=== PATIENT | female | born 1945 | race Caucasian/White ===

== ENCOUNTER → 2019-03-13 | Outpatient (CLI) | payer MEDICARE, OTHER, SELFPAY ==
[2017-10-26 14:01] VITALS: BMI 24.7
--- NOTE | 2019-03-13 10:28 | BI_ITS ---
MAMMOGRAPHY - BILATERAL SCREENING REASON FOR EXAM: Female, 74 years old. Routine annual screening examination. PERTINENT HISTORY: Mother with breast cancer. Aunt with breast cancer. TECHNIQUE: Digital bilateral breast demetri (3D mammographic acquisition) in the CC and MLO projections. 2-D mediolateral oblique (MLO) and craniocaudad (CC) views of both breasts were obtained. CAD: Full Field Digital Mammography with Computer Added Detection was performed. COMPARISON: Comparison is made with prior study dated February 13, 2017 and December 10, 2015. FINDINGS: Breast Composition: There are scattered areas of fibroglandular density. There are no dominant masses or suspicious calcifications. No other significant abnormalities are identified. There has been no significant change since the prior study. BI/SCREEN MAMM (CAD) W/DEMETRI BILAT IMPRESSION: Stable bilateral screening mammogram. Yearly follow-up mammogram recommended. (A) ASSESSMENT CATEGORY: BIRADS Category 1: Negative. A letter regarding these results will be sent to the patient by the facility within 30 days. Approximately 10% of breast cancers are not detected by mammography. A normal mammogram should not delay biopsy of a clinically suspicious abnormality. [id number] Electronically Signed: Emiliano Galvez, at 12:40 EDT , Service support ,
--- NOTE | 2019-03-13 10:43 | BD_ITS ---
STUDY: DUAL ENERGY X-RAY ABSORPTIOMETRY / DXA REASON FOR EXAM: Female, 74 years old. The patient is postmenopausal. Loss of height. TECHNIQUE: Bone Mineral Density (BMD) measurements of lumbar spine and bilateral hips were obtained. COMPARISON: Comparison is made with prior examination dated January 13, 2015. FINDINGS: Lumbar Spine (L1-L4): g/cm2 (1.212) / T-score (0.4) / Z-score (2.1) Findings are suggestive of normal bone density with a low fracture risk. Left Femur Total: g/cm2 (0.862) / T-score (-1.2) / Z-score (0.5) Left Femoral Neck: g/cm2 (0.813) / T-score (-1.6) / Z-score (0.2) Right Femur Total: g/cm2 (0.871) / T-score (-1.1) / Z-score (0.5) Right Femoral Neck: g/cm2 (0.763) / T-score (-2.0) / Z-score (-0.2) The T-Scores on the most recent prior examination were: Lumbar Spine (L1-L4): There has been improvement of bone density since the previous examination. Left Femur Total: which represents an improvement of 0.1%. Right Femur Total: which represents an improvement of 3.3%. BD/Dexa Bone Density Study IMPRESSION: The patient is considered osteopenic as outlined below according to World Vivek Organization (WHO) criteria with a moderate fracture risk. There has been improvement of bone density since the previous examination. Reference Information: The T-score is the number of standard deviations above or below the standard which is normal for young adults at their peak bone mineral density. The World Health Organization (WHO) interprets the T-scores as follows: Above -1 Normal bone density Between -1 and -2.5 Osteopenia Equal to / or below -2.5 Osteoporosis As a practical clinical guideline, osteopenia may be graded as follows: Mild -1 through -1.5 Moderate -1.6 through -2.0 Severe -2.1 through -2.4 The Z-score is the number of standard deviations above or below age-matched controls. A Z-score of less than -1.5 would be considered abnormal. References: 1. NIH Osteoporosis and Related Bone Diseases http://www.osteo.org 2. International Society for Clinical Densitometry http://www.iscd.org 3. National Osteoporosis Foundation http://www.nof.org Electronically Signed: Emiliano Galvez, at 8:57 EDT , Service support ,
== END | disposition home or self-care (01) ==
PROVIDERS: Family Provider Internal Medicine; PCP Internal Medicine; Referring Provider Internal Medicine; Visit Provider Internal Medicine
DX: Z12.31 Encounter for screening mammogram for malignant neoplasm of breast (principal); Z78.0 Asymptomatic menopausal state
CPT/HCPCS: 77063; 77067; 77080

== ENCOUNTER → 2019-08-22 12:39 | Outpatient (CLI) | payer MEDICARE, OTHER, SELFPAY ==
--- NOTE | 2019-08-22 12:44 | RAD_ITS ---
STUDY: X-RAY CHEST REASON FOR EXAM: Female, 74 years old. Cough. TECHNIQUE: 2 views COMPARISON: Prior chest radiograph of October 31, 2016 and March 28, 2016 FINDINGS: Stable bibasilar interstitial opacities. Slightly indistinct lateral right diaphragm. Otherwise negative for major consolidation or pleural effusion. Normal size heart. Normal mediastinum and soledad. Normal visualized pulmonary arteries. There is atherosclerotic calcification of the aortic arch with tortuosity. There are diffuse degenerative changes of the visualized thoracic spine. Normal visualized ribs, clavicles, and shoulders. There is no demonstrated abnormality of the visualized soft tissue structures of the upper abdomen. RAD/Chest PA and Lateral IMPRESSION: Bilateral chronic interstitial changes similar to prior exam with a mild infiltrate or atelectasis at the right lung base compared to prior exam. Electronically Signed: Mary Coburn MD at 19:05 EST , Service support ,
== END ==
PROVIDERS: Family Provider Internal Medicine; PCP Internal Medicine; Referring Provider Internal Medicine; Visit Provider Internal Medicine
DX: R05 Cough (principal)
CPT/HCPCS: 71046

== ENCOUNTER → 2019-09-04 13:49 | Outpatient (CLI) | payer MEDICARE, OTHER, SELFPAY ==
[2017-10-26 14:01] VITALS: BMI 24.7
--- NOTE | 2019-09-04 14:00 | ECHOD_ITS ---
Reason For Study: PHTN Procedure This was a 2D Doppler, Color Flow transthoracic echocardiogram. Exam performed in department. Left Ventricle Normal size and thickness. The estimated ejection fraction is 65 %. Stage 1 diastolic dysfunction. No regional wall motion abnormalities noted. Right Ventricle Normal size and thickness. Normal systolic function. Atria Normal left atrium. Normal right atrium. Normal atrial septum. Mitral Valve The mitral valve is structurally normal. No prolapse or stenosis seen. Trivial mitral valve insufficiency. Tricuspid Valve Normal tricuspid valve. Trivial tricuspid valve insufficiency. Right ventricular systolic pressure estimated to be 35 mmHg. Aortic Valve Trisinus/trileaflet aortic valve. Aortic sclerosis, no stenosis. Trivial aortic valve insufficiency. Pulmonic Valve Normal pulmonic valve. Great Vessels Normal aortic root. Normal arch. Normal inferior vena cava. Inferior vena cava collapse with sniff. Pericardium/Pleural No pericardial effusion. MMode/2D Measurements & Calculations LVIDd: 4.3 cm IVSd: 0.96 cm Ao root diam: 2.1 cm LVIDs: 2.5 cm LVPWd: 0.95 cm RVDd: 2.5 cm FS: 42.9 % LAV(MOD-bp): 35.8 ml LVAd ap4: 20.2 cm2 SV(MOD-sp4): 33.7 ml LAV(MOD-bp) Indexed: 23.2 ml/m2 EDV(MOD-sp4): 53.1 ml LAV(MOD-sp2): 45.6 ml EDV(sp4-el): 55.3 ml LAV(MOD-sp4): 27.9 ml LVAs ap4: 10.9 cm2 ESV(MOD-sp4): 19.4 ml ESV(sp4-el): 19.5 ml EF(MOD-sp4): 63.5 % EF(sp4-el): 64.7 % SV(sp4-el): 35.8 ml LA A4 area: 12.5 cm2 LA dimension(2D): 3.9 cm RA A4 area: 12.0 cm2 Doppler Measurements & Calculations MV E max mekhi: 95.4 cm/sec Lat Peak E' Mekhi: 5.7 cm/sec Med Peak E' Mekhi: 5.6 cm/sec MV A max mekhi: 103.5 cm/sec E/E' lat: 16.8 E/E' med: 17.0 MV E/A: 0.92 Ao V2 max: 163.1 cm/sec LV V1 max: 110.6 cm/sec PA V2 max: 95.1 cm/sec Ao max P.6 mmHg LV V1 max P.9 mmHg Ao V2 mean: 114.2 cm/sec Ao mean P.7 mmHg Ao V2 VTI: 36.9 cm TR max mekhi: 272.1 cm/sec TR max P.6 mmHg Interpretation Summary The estimated ejection fraction is 65 %. Stage 1 diastolic dysfunction. Trivial mitral valve insufficiency. Trivial tricuspid valve insufficiency. Right ventricular systolic pressure estimated to be 35 mmHg. Trivial aortic valve insufficiency. Compared to echo report dated 06/14/2008, no appreciable changes noted. Ordering Physician: Fela Rodriguez Referring Physician: Fela Rodriguez Performed By: Michelle Suarez, VINH, RVT
== END ==
PROVIDERS: Family Provider Internal Medicine; PCP Internal Medicine; Referring Provider Internal Medicine; Visit Provider Internal Medicine
DX: I27.0 Primary pulmonary hypertension (principal)
CPT/HCPCS: 93306

== ENCOUNTER → 2019-11-13 14:39 | Outpatient (CLI) | payer MEDICARE, OTHER, SELFPAY ==
[2017-10-26 14:01] VITALS: BMI 24.7
--- NOTE | 2019-11-13 14:43 | RAD_ITS ---
STUDY: X-RAY - ABDOMEN/PELVIS REASON FOR EXAM: Female, 74 years old. CONSTIPATION TECHNIQUE: Single AP view of the abdomen / pelvis. COMPARISON: None. FINDINGS: Normal visualized lung bases. No dilated loops of small bowel. There is fecal residue of the right and left colon. There is no demonstrated free abdominal air. The visualized liver, spleen and kidneys are grossly normal in size and morphology. Normal soft tissue structures. There are diffuse degenerative changes of the visualized lumbar spine. Mild levoscoliosis. RAD/Abdomen Single View IMPRESSION: Mild colonic fecal residue without dilated loops of bowel. Electronically Signed: David Nolen MD (Brooks) at 12:08 EST , Service support ,
== END ==
PROVIDERS: PCP Internal Medicine; Referring Provider Internal Medicine; Visit Provider Internal Medicine
DX: K59.00 Constipation, unspecified (principal)
CPT/HCPCS: 74018

== ENCOUNTER → 2019-12-19 12:03 | Outpatient (CLI) | payer MEDICARE, OTHER, SELFPAY ==
[2017-10-26 14:01] VITALS: BMI 24.7
--- NOTE | 2019-12-19 11:38 | SPU_PTH ---
PATIENT: ZO HORN LOC: [facility] U#:[id number] AGE/SX: 80/F ROOM: RE12/19/[address]: Dr. Aleks Krause MD : 1945 BED: DIS: SPEC #: [id number] RECD: 12/19/19 13:21 STATUS: DORIS RESilverio #: [id number] RAINA: 12/19/19 11:[address]: Aleks Krause V DEPT: CYTOLOGY RECD BY: Sony Farmer ENTERED: 12/19/19 13:21 SP TYPE: Sputum Cy OTHR DR: Dr. Fela Rodriguez, Tissues: Sputum Procedures: Pap Stain (control) Special Stain Group II Special Stain Group I AFB Stain (control) GMS Stain (control) Cytospin Fluid HEADER OPERATION: Not noted PRE-OP DIAGNOSIS: Cough TISSUE SUBMITTED: Sputum for cytology DIAGNOSIS CYTOLOGY Sputum for cytology (cytospin and smears): Negative for malignant cells. Special stains for acid fast bacilli and fungi are negative for organisms; matched controls are appropriate. See comment. SJ:lucio 12/20/19 COMMENT Eosinophils are not seen. Organisms consistent with bacteria are noted. Correlation with clinical findings and appropriate follow up are necessary. CYTOLOGY STUDY Slides are reviewed. CYTOLOGY GROSS Received is 0.5 ml of cloudy white mucoid material labeled with the patient's name and and designated per the requisition as sputum. Submitted for cytology preparation. / lucio 12/19/19 TC:5 CPT: 01333, 96257 x2
[2019-12-19 12:22] LABS: Cytology, Body Fluid / CSF SEE PATHOLOGY REPORT
== END ==
PROVIDERS: PCP Internal Medicine; Referring Provider Internal Medicine Pulmonary Disease; Visit Provider Internal Medicine Pulmonary Disease
DX: R05 Cough (principal)
CPT/HCPCS: 87015; 87070; 87101; 87116; 87205; 87206; 88108; 88312; 88313

== ENCOUNTER → 2019-12-20 16:57 | Outpatient (CLI) | payer MEDICARE, OTHER, SELFPAY ==
[2017-10-26 14:01] VITALS: BMI 24.7
== END ==
PROVIDERS: PCP Internal Medicine; Referring Provider Internal Medicine Pulmonary Disease; Visit Provider Internal Medicine Pulmonary Disease
DX: R05 Cough (principal)
CPT/HCPCS: 87015; 87116; 87206

== ENCOUNTER → 2019-12-23 12:56 | Outpatient (CLI) | payer MEDICARE, OTHER, SELFPAY ==
[2017-10-26 14:01] VITALS: BMI 24.7
--- NOTE | 2019-12-23 13:30 | SP.MBSS_ITS ---
PRIMARY / SECONDARY DIAGNOSIS: dysphagia (R13.10) REFERRING PHYSICIAN: Dr. Aleks Krause MD CURRENT DIET: regular textures, thin liquids DENTITION: dentures MENTAL STATUS: WNL RESPIRATORY STATUS: O2 via room air REASON FOR REFERRAL: The Patient is a 74 year old female referred for a modified barium swallow (MBS) study to objectively assess the Patients oropharyngeal swallow function under fluoroscopy secondary to reported intermittent post prandial globus sensation occurring for approximately 1 month, with the Patient reporting difficulties with motility primary for solid textures and medications MEDICAL HISTORY: Chronic obstructive pulmonary disease, dyspnea on exertion, asthma, aortic stenosis, bilateral carotid occlusion, chest pain, syncope, pulmonary hypertension, hyperlipidemia, spinal stenosis, osteoporosis, gastroesophageal reflux disease, status post tonsillectomy. PREVIOUS MODIFIED BARIUM SWALLOW STUDY: None ASSESSMENT PARAMETERS: The Patient participated in a Modified Barium Swallow (MBS) study on 12/23/2019. This study was recorded in the lateral view and images were sent to PACs for storage. Scoring was completed through each trial using the 8- point Penetration-Aspiration Scale (PAS) and summarized via the Videofluoroscopic Dysphagia Scale (VDS) and the Bolus Residue Scale (BRS), with severity scoring through the Dysphagia Severity Rating Scale (DSRS) and the Swallowing Performance Scale (SPS), and recommended diet textures through the International Dysphagia Diet Standardisation Initiative (IDDSI) RESULTS OF THE EVALUATION: The Patient presents with mastication and deglutition abilities found to be grossly within functional limits (DSRS: 1; SPS: 2) with shallow transient penetration during sequential ingestion not significantly outside expected values for age matched peers. OBJECTIVE ASSESSMENT OF SWALLOW FUNCTION (QUANTITATIVE ? PER TRIAL): PENETRATION / ASPIRATION SCALE (SANTOS): 1 = does not enter airway 2 = enters airway/above vocal folds/ejected 3 = enters airway/above vocal folds/not ejected 4 = enters airway/contacts vocal folds/ejected 5 = enters airway/contacts vocal folds/not ejected 6 = enters airway/below vocal folds/ejected 7 = enters airway/below vocal folds/not ejected despite effort 8 = enters airway/below vocal folds/no effort PENETRATION / ASPIRATION SCALE (SCORE): Thin liquid - 5 mL tsp.: 1 Thin liquids via cup (single sip): 1 Thin liquids via cup (single sip): 1 Thin liquids via cup (single sip): 1 Thin liquids via cup (sequential swallows): 2 Thin liquids via straw (single sip): 1 Thin liquids via straw (sequential swallows): 3 Pudding via spoon: 1 Regular textured cookie: 1 Thin liquids via straw (chin tuck): 1 Thin liquids via straw (chin tuck): 1 Thin liquids via straw (chin tuck): 1 OBJECTIVE ASSESSMENT OF SWALLOW FUNCTION (QUANTITATIVE ? AGGREGATE): VIDEOFLOROSCOPIC DYSPHAGIA SCALE (VDS): LIP CLOSURE: 0 (of 4) Intact BOLUS FORMATION: 0 (of 6) Intact MASTICATION: 0 (of 8) Intact APRAXIA: 0 (of 4.5) None TONGUE TO PALATE CONTACT: 0 (of 10) Intact PREMATURE BOLUS LOSS: 0 (of 4.5) None ORAL TRANSIT TIME: 0 (of 3) < 1.5s TRIGGERING OF PHARYNGEAL SWALLOW: 0 (of 4.5) Normal VALLECULAR RESIDUE: 2 (of 6) <10% LARYNGEAL ELEVATION: 0 (of 9) Normal PYRIFORM SINUS RESIDUE: 4.5 (of 13.5) <10% COATING OF PHARYNGEAL WALL: 0 (of 9) No PHARYNGEAL TRANSIT TIME: 0 (of 6) <1.0s ASPIRATION: 6 (of 12) Supraglottic penetration BOLUS RESIDUE SCALE (BRS): 3 (of 6) residue in the piriform sinus OBJECTIVE ASSESSMENT OF SWALLOW FUNCTION (SEVERITY GRADING): DYSPHAGIA SEVERITY RATING SCALE (DSRS): 1 (within functional limits) SWALLOWING PERFORMANCE SCALE (SPS): 2 (within functional limits) OBJECTIVE ASSESSMENT OF SWALLOW FUNCTION (QUALITATIVE): ORAL PREPARATORY PHASE: sufficient mastication rate and quality; competent bolus manipulation without fragmented swallowing (piecemeal deglutition); sufficient anterior oral containment during oral manipulation; preserved management of breathing / bolus formation ORAL TRANSITIONAL PHASE: sufficient bolus transportation; no lingual discoordination (no tremor / undulations); no bolus consolidation impairments with sufficient oral clearance; no presence of premature posterior bolus loss; PHARYNGEAL PHASE: no signs of pharyngeal dyssynchrony; appropriate hyolaryngeal excursion and laryngeal vestibule closure / pressure; with overall sufficient though inconsistent laryngeal vestibule pressure generated to expel penetrated material (incomplete ejection on one occasion); slight post prandial retention within the pyriforms on one occasion attributed to a slight reduction in pharyngoesophageal segment relaxation, though overall sufficient pharyngeal motility noted; no signs of velopharyngeal impairments. ESOPHAGEAL PHASE: no obvious esophageal phase abnormalities observed, though given the Patients reported concerns further testing with measures sensitive to esophageal phase functioning may be indicated if not already completed. RESPONSE TO STRATEGIES: all deficits managed successfully with reduction in bolus rate / volume adjustments, similar effects noted with execution of the chin tuck posture. INTERVENTION RECOMMENDATIONS AND CONSIDERATIONS: No further skilled speech-language services warranted at this time targeting dysphagia. POST ASSESSMENT EDUCATION: Results and recommendations were discussed with the Patient immediately following MBS completion, with the Patient and Patients family verbalizing understanding and agreement with all recommendations and education provided. I provided brief overview of signs and symptoms of aspiration, with recommendations for the Patient to further discuss symptoms with the Patients primary care provider. DIET TEXTURE RECOMMENDATIONS: Will recommend a regular textured (IDDSI: 7), thin liquid diet (IDDSI: 0) diet RECOMMENDED COMPENSATORY STRATEGIES: Consider cutting tougher textures into bite sized pieces, reduced bolus volume / rate of ingestion, seated upright at 90 degrees during PO intake, remain upright for 30-60 minutes post meal (GERD precaution) IMAGE COUNT: [id number] Sony Barlow M.A., HOLGER-BENEFITS MANAGER, CBIS MBSImP Certified, LSVT Certified [facility]Language [facility] Department [email or web address]
--- NOTE | 2019-12-23 16:11 | SPU_PTH ---
PATIENT: ZO HORN LOC: [facility] U#:[id number] AGE/SX: 80/F ROOM: RE12/23/[address]: Dr. Aleks Krause MD : 1945 BED: DIS: SPEC #: [id number] RECD: 12/24/19 08:45 STATUS: DORIS RESilverio #: [id number] RAINA: 12/23/19 16:[address]: Aleks Krause V DEPT: CYTOLOGY RECD BY: Sony Farmer ENTERED: 12/24/19 08:46 SP TYPE: Sputum Cy OTHR DR: Dr. Fela Rodriguez, DO Tissues: Sputum Procedures: Pap Stain (control) Special Stain Group II Special Stain Group I AFB Stain (control) Cytospin Fluid HEADER OPERATION: Not noted PRE-OP DIAGNOSIS: Cough TISSUE SUBMITTED: Sputum for cytology DIAGNOSIS CYTOLOGY Sputum for cytology (smears and cytospin): Negative for malignant cells. Negative for acid fast bacilli. AM:lucio 12/24/19 COMMENT GMS stain with matched control was used in the evaluation of this case. Case has been reviewed in consultation with Dr. Cortez who concurs with the above diagnosis. IDC:SJ CYTOLOGY STUDY Slides are reviewed. CYTOLOGY GROSS Received is 0.5 ml of clear mucoid material labeled with the patient's name and and designated per the requisition as sputum. Submitted for cytology preparation. / lucio 12/24/19 TC:5 CPT: 11224, 13905
[2019-12-23 16:24] LABS: Acid Fast Stain SEE PATHOLOGY REPORT; Cytology, Body Fluid / CSF SEE PATHOLOGY REPORT
== END ==
PROVIDERS: PCP Internal Medicine; Referring Provider Internal Medicine Pulmonary Disease; Visit Provider Internal Medicine Pulmonary Disease
DX: R13.10 Dysphagia, unspecified (principal); Z87.01 Personal history of pneumonia (recurrent); R05 Cough
CPT/HCPCS: 36415; 74230; 87015; 87070; 87077; 87101; 87116; 87205; 87206; 88108; 88312; 88313; 92611

== ENCOUNTER → 2020-06-23 13:52 | Outpatient (CLI) | payer MEDICARE, OTHER, SELFPAY ==
--- NOTE | 2020-06-23 14:30 | MRI_ITS ---
STUDY: MRI LUMBAR SPINE WITHOUT CONTRAST REASON FOR EXAM: Female, 75 years old. post laminectomy syndrome, lt hip pain TECHNIQUE: Standardized fat and water weighted pulse sequences were obtained in the sagittal and axial planes. COMPARISON: X-ray dated 02/29/2012 FINDINGS: Normal lumbar lordosis. There is mild levoscoliosis centered at L2/L3 negative Normal conus medullaris that terminates at the L1 L1-2: There is minimal disc space narrowing and endplate spondylosis. There is no significant disc herniation, central canal or foraminal stenosis. L2-3: There is moderate disc space narrowing and endplates spondylosis.. There is a moderate disc bulge and facet arthropathy without significant central canal stenosis. Moderate right and mild left foraminal stenosis. L3-4: There is moderate disc space narrowing and endplates spondylosis. There is a moderate disc bulge and facet arthropathy asymmetric to the right with moderate right foraminal stenosis. There is mild central canal and mild left foraminal stenosis. L4-5: There is severe disc space narrowing and endplates spondylosis. There is moderate disc osteophyte complex and facet arthropathy with mild central canal stenosis. There is mild right and moderate left foraminal stenosis. L5-S1: There is severe disc space narrowing and endplates spondylosis. Moderate disc osteophyte complex and facet arthropathy without significant central canal stenosis. Moderate right and severe left foraminal stenosis. There is a right hemilaminectomy Normal visualized sacral ala. MRI/Spine Lumbar (Routine) IMPRESSION: L2/L3: Moderate right foraminal stenosis. L3/L4: Moderate right foraminal stenosis. L4/L5: Moderate left foraminal stenosis. L5/S1: Moderate right and severe left foraminal stenosis. Right hemilaminectomy. Electronically Signed: Francisco Smart MD at 15:19 EDT Tel , Service support ,
== END ==
PROVIDERS: PCP Internal Medicine Infectious Disease; Referring Provider Anesthesiology Pain Medicine; Visit Provider Anesthesiology Pain Medicine
DX: M51.37 Other intervertebral disc degeneration, lumbosacral region (principal); M96.1 Postlaminectomy syndrome, not elsewhere classified
CPT/HCPCS: 72148

== ENCOUNTER → 2020-08-07 15:29 | Outpatient (CLI) | payer MEDICARE, OTHER, SELFPAY ==
[2017-10-26 14:01] VITALS: BMI 24.7
[2020-08-07 17:45] LABS: Absolute Lymphocyte Count 1.69 X10^3/uL (0.83-4.51); Absolute Neutrophil Count 10.8 X10^3/uL (2.0-7.7); Basophil# 0.08 X10^3/uL; Basophil% 0.6 % (0-1); Eosinophils% 1.4 % (0-5); Hematocrit 39.1 % (37-47); Hemoglobin 11.5 g/dL (12.0-15.0); Lymphocyte # 1.69 X10^3/ul (4.0); Lymphocyte % 12.1 % (19-41); Mean Corp Hgb Conc 29.4 g/dL (32-36); Mean Corpuscular Hgb 27.4 pg (27.0-32.0); Mean Corpuscular Volume 93.1 fL (81-99); Monocyte# 1.09 X10^3/uL; Monocyte% 7.8 % (0-10); NRBC Flagged by Analyzer 0 % (0-5); Neutrophil # 10.82 X10^3/uL (2.7-7.7); Neutrophil % 77.4 % (47-70); Platelet Count 693 K/mm3 (150-450); RBC Distribution Width CV 14.2 % (11.6-14.6); RBC Distribution Width SD 48.7 fl (35.1-43.9)
[2020-08-07 18:10] LABS: ALB/GLOB Ratio 0.7 RATIO (0.9-2.4); AST(SGOT) 28 U/L (15-37); Alanine Aminotransfer ALT/SGPT 29 U/L (13-56); Albumin, Serum 3.1 g/dL (3.2-5.0); Alkaline Phosphatase 109 U/L (45-117); Anion Gap 10 (5-15); BUN 9 mg/dL (7-18); BUN/Creat Ratio 8.3 RATIO (10-20); Chloride 108 mmol/L (98-107); Creatinine, Serum 1.08 mg/dL (0.55-1.02); EST Glomerular Filtration Rate 53 mL/min (>60); Est Glom Filt Rate - Afr Amer 64 mL/min (>60); Globulin 4.4 g/dL (2.2-4.2); Glucose 89 mg/dL (74-106); Potassium 3.4 mmol/L (3.5-5.1); Protein, Total 7.5 g/dL (6.4-8.2); Sodium Level 142 mmol/L (136-145)
== END ==
PROVIDERS: PCP Internal Medicine; Referring Provider Nurse Practitioner; Visit Provider Nurse Practitioner
DX: R53.1 Weakness (principal)
CPT/HCPCS: 36415; 80053; 85025

== ENCOUNTER → 2020-08-10 15:25 | Outpatient (CLI) | payer MEDICARE, OTHER, SELFPAY ==
[2017-10-26 14:01] VITALS: BMI 24.7
--- NOTE | 2020-08-10 15:30 | RAD_ITS ---
STUDY: X-RAY CHEST REASON FOR EXAM: Female, 75 years old. Elevated white blood cell count, patient states she has had loss of appetite, shortness of breath and cough is normal for her with COPD TECHNIQUE: PA and lateral views of the chest. COMPARISON: Comparison is made with prior examination dated 08/22/2019. FINDINGS: Hyperinflation. Stable mild increased markings at the lung bases suggestive of scarring. There is no demonstrated pleural abnormality. Normal size heart. Normal mediastinum and soledad. Normal visualized pulmonary arteries. There is atherosclerotic calcification of the aortic arch with tortuosity. There are diffuse degenerative changes of the visualized thoracic spine. Normal visualized ribs, clavicles, and shoulders. There is no demonstrated abnormality of the visualized soft tissue structures of the upper abdomen. RAD/Chest PA and Lateral IMPRESSION: Hyperinflation. Stable mild increased markings at the lung bases suggest bibasilar scarring. Electronically Signed: Emiliano Galvez, at 15:17 EST , Service support ,
== END ==
PROVIDERS: PCP Internal Medicine; Referring Provider Nurse Practitioner; Visit Provider Nurse Practitioner
DX: D72.829 Elevated white blood cell count, unspecified (principal)
CPT/HCPCS: 71046

== ENCOUNTER → 2020-10-16 14:53 | Outpatient (CLI) | payer MEDICARE, OTHER, SELFPAY ==
--- NOTE | 2020-10-16 14:57 | BI_ITS ---
MAMMOGRAPHY - BILATERAL SCREENING REASON FOR EXAM: Female, 75 years old. Routine annual screening examination. PERTINENT HISTORY: Mother with breast cancer. Aunts with breast cancer. TECHNIQUE: Digital bilateral breast demetri (3D mammographic acquisition) in the CC and MLO projections. 2-D mediolateral oblique (MLO) and craniocaudad (CC) views of both breasts were obtained. CAD: Full Field Digital Mammography with Computer Added Detection was performed. COMPARISON: Comparison is made with prior study dated 03/13/2019 and 02/13/2017. FINDINGS: Breast Composition: There are scattered areas of fibroglandular density. There are no dominant masses or suspicious calcifications. No other significant abnormalities are identified. There has been no significant change since the prior study. BI/SCREEN MAMM (CAD) W/DEMETRI BILAT IMPRESSION: Stable bilateral screening mammogram. Yearly follow-up mammogram recommended. (A) ASSESSMENT CATEGORY: BIRADS Category 1: Negative. A letter regarding these results will be sent to the patient by the facility within 30 days. Approximately 10% of breast cancers are not detected by mammography. A normal mammogram should not delay biopsy of a clinically suspicious abnormality. [id number] Electronically Signed: Emiliano Galvez, at 15:30 EST , Service support ,
== END ==
PROVIDERS: PCP Internal Medicine; Referring Provider Internal Medicine; Visit Provider Internal Medicine
DX: Z12.31 Encounter for screening mammogram for malignant neoplasm of breast (principal); Z80.3 Family history of malignant neoplasm of breast
CPT/HCPCS: 77063; 77067

== ENCOUNTER → 2020-11-13 13:28 | Outpatient (CLI) | payer MEDICARE, OTHER, SELFPAY ==
--- NOTE | 2020-11-13 15:08 | NEURO ---
NCS and/or EMG Patient Report Ordering Doctor: Fela Rodriguez DATE OF SERVICE: 11/13/20 Indication: Bilateral hand pain and numbness (digits 2-4). Symptoms are intermittent and more severe on the right. She does note left shoulder pain, but denies neck problems. Evaluate for median neuropathy. Findings: Nerve conduction studies were performed in the right and left upper extremities. The right median motor study recording the abductor pollicis brevis showed a normal amplitude, borderline distal latency and mildly slowed conduction velocity. The right ulnar motor study recording the abductor digiti minimi showed a normal amplitude, normal distal latency and normal conduction velocity. No conduction block or focal slowing was present across the elbow. The right median sensory response recording digit two showed a borderline amplitude, prolonged latency and slowed conduction velocity. The right ulnar sensory response recording digit five showed a normal amplitude, latency and conduction velocity. The right radial sensory response recording over the extensor snuff box showed a normal amplitude, latency and conduction velocity. The left median motor study recording the abductor pollicis brevis showed a normal amplitude, borderline distal latency and slowed conduction velocity. The left ulnar motor study recording the abductor digiti minimi showed a normal amplitude, normal distal latency and normal conduction velocity. No conduction block or focal slowing was present across the elbow. The left median sensory response recording digit two showed a normal amplitude, borderline latency and slowed conduction velocity. The left ulnar sensory response recording digit five showed a normal amplitude, latency and conduction velocity. The left radial sensory response recording over the extensor snuff box showed a normal amplitude, latency and conduction velocity. Right median-ulnar lumbrical / interosseous motor latencies showed a prolonged median latency compared to the ulnar. Left median-ulnar lumbrical / interosseous motor latencies showed a prolonged median latency compared to the ulnar. Needle EMG of the left upper extremity and cervical paraspinal muscles was performed. No denervation was seen in any muscle. All motor unit morphology, activation and recruitment patterns were normal. Impression: This is an abnormal study. There is electrophysiologic evidence of mild median neuropathy across the wrist on both sides. These findings are compatible with the clinical diagnosis of carpal tunnel syndrome. In addition, there is no electrophysiologic evidence of superimposed cervical radiculopathy in the left upper extremity. Damien Raygoza D.O.
== END ==
PROVIDERS: PCP Internal Medicine; Referring Provider Internal Medicine; Visit Provider Internal Medicine
DX: R20.2 Paresthesia of skin (principal)
CPT/HCPCS: 95886; 95913

== ENCOUNTER → 2020-12-02 12:42 | Outpatient (CLI) | payer MEDICARE, OTHER, SELFPAY ==
[2017-10-26 14:01] VITALS: BMI 24.7
--- NOTE | 2020-12-02 12:45 | RAD_ITS ---
STUDY: X-RAY - LEFT SHOULDER REASON FOR EXAM: Female, 75 years old. PAIN when lifting arm, no injury TECHNIQUE: 4 view(s) of the shoulder. COMPARISON: Comparison is made with prior examination dated 11/14/2013. FINDINGS: There is mild degenerative arthrosis of the glenohumeral articulation. There is degenerative arthrosis of the acromioclavicular joint without inferior osseous spur formation. Normal acromion. Degenerative spurring of the medial aspect of the humeral head. The soft tissue structures are unremarkable. Normal visualized pulmonary apex. 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 Electronically Signed: Emiliano Galvez MD at 9:32 EST , Service support ,
== END ==
PROVIDERS: PCP Internal Medicine; Referring Provider Anesthesiology Pain Medicine; Visit Provider Anesthesiology Pain Medicine
DX: M25.512 Pain in left shoulder (principal)
CPT/HCPCS: 73030

== ENCOUNTER → 2021-09-01 13:40 | Outpatient (CLI) | payer MEDICARE, OTHER, SELFPAY ==
--- NOTE | 2021-09-01 13:44 | CT_ITS ---
INDICATION: DIZZY SPELLS EXAMINATION: CT BRAIN - CT Head or Brain W/O Contrast Injection TECHNIQUE: Multiple axial images were obtained of the head without intravenous contrast. A radiation dose optimization technique was used for this scan. IV Contrast dosage and agent: None. COMPARISON: Brain MRI from 02/14/2012. FINDINGS: BRAIN PARENCHYMA: No intra- or extra-axial hemorrhage. No evidence of acute infarct. No intracranial mass or mass effect. There is preservation of the plata/white matter interface. Cortical atrophy, unchanged from 2015. CSF SPACES: Appropriate for age. No hydrocephalus. Basal cisterns are patent. SINUSES/MASTOID AIR CELLS: Mild left maxillary sinus and bilateral ethmoid sinus thickening. Otherwise, the sinuses are patent. Mastoid air cells are patent. BONES: No acute findings. No destructive osseous lesions. ORBITS: No acute findings. CT/Brain/Head without Contrast IMPRESSION: Negative Brain CT without contrast. Electronically Signed: Leopoldo Navas MD at 15:49 EST Tel , Service support ,
--- NOTE | 2021-09-01 13:45 | CDU_ITS ---
Reason For Study: Dizzy Spells Rt. Velocities/BP Lt. Velocities/BP Prox CCA 115/19 cm/sec. Prox CCA 129/14 cm/sec. Mid CCA 106/17 cm/sec. Mid CCA 95/14 cm/sec. Dist CCA 92/20 cm/sec. Dist CCA 82/16 cm/sec. Prox ICA 59/8 cm/sec. Prox ICA 79/16 cm/sec. Mid ICA 66/14 cm/sec. Mid ICA 103/21 cm/sec. Dist ICA 98/18 cm/sec. Dist ICA 122/34 cm/sec. Rt. ICA/CCA = 0.9. Lt. ICA/CCA = 1.3. Prox ECA 116/13 cm/sec. Prox ECA 153/17 cm/sec. Rt. Vert. 57/14 cm/sec. Lt. Vert. 42/10 cm/sec. Right Extracranial There is heterogeneous, irregular atherosclerotic plaque noted in the right common carotid artery. There is heterogeneous, irregular atherosclerotic plaque noted in the right internal carotid artery. There is heterogeneous, irregular atherosclerotic plaque noted in the right external carotid artery. Antegrade flow is noted in the right vertebral artery. Left Extracranial There is homogeneous, smooth atherosclerotic plaque noted in the left common carotid artery. There is intimal thickening but no significant atherosclerotic plaque noted in the left internal carotid artery. There is homogeneous, smooth atherosclerotic plaque noted in the left external carotid artery. Antegrade flow is noted in the left vertebral artery. Procedure Carotid Duplex 21006. This is a Carotid Duplex examination using B-mode, color flow and specral Doppler. Exam performed in department. VL/Carotid Duplex Ultrasound Interpretation Summary Minimal irregular calcific plaque of the proximal right internal carotid artery with less than 50% stenosis Less than 50% stenosis right external carotid artery Intimal thickening at the proximal left internal carotid artery with less than 50% stenosis Less than 50% stenosis left external carotid artery Patent and antegrade vertebral arteries bilaterally Ordering Physician: Fela Rodriguez Referring Physician: Fela Rodriguez Performed By: Michelle Suarez, VINH, RVT
== END ==
PROVIDERS: PCP Internal Medicine; Referring Provider Internal Medicine; Visit Provider Internal Medicine
DX: R42 Dizziness and giddiness (principal)
CPT/HCPCS: 70450; 93880

== ENCOUNTER → 2021-09-21 07:25 | Outpatient (CLI) | payer MEDICARE, OTHER, SELFPAY ==
--- NOTE | 2021-09-21 07:28 | ECHOCS_ITS ---
Reason For Study: CP-unspecified Procedure This was a 2D Doppler, Color Flow transthoracic echocardiogram. The study was technically difficult. Contrast injection was performed. Exam performed in department. Left Ventricle Normal LV size. Left ventricular systolic function is normal. The estimated ejection fraction is 65 %. Diastolic function is indeterminate. No regional wall motion abnormalities noted. Right Ventricle Normal RV size. Normal systolic function. Atria The left atrium is mildly enlarged. Normal right atrium. No doppler evidence for ASD. Mitral Valve There is mild mitral annular calcification. Mild diffuse mitral valve thickening. Mild focal mitral valve calcification, bileaflet. Mild (1+) mitral valve insufficiency. Tricuspid Valve Normal tricuspid valve. Mild tricuspid valve insufficiency. Right ventricular systolic pressure estimated to be 28 mmHg. Aortic Valve Trisinus/trileaflet aortic valve. Mild focal aortic valve calcification. Pulmonic Valve The pulmonic valve is not well visualized. Trivial pulmonic valve insufficiency. Great Vessels The aortic root is not well visualized. Pericardium/Pleural No pericardial effusion. Medication 22 gauge I.V. with prn adaptor inserted into right arm. Diluted definity 2ml given slow IV push to enhance endocardial definition. MMode/2D Measurements & Calculations LVIDd: 4.1 cm IVSd: 1.1 cm LA dimension: 3.6 cm LVIDs: 2.8 cm LVPWd: 1.1 cm FS: 32.4 % LAV(MOD-bp): 50.3 ml LA A4 area: 17.3 cm2 RA A4 area: 12.8 cm2 LAV(MOD-bp) Indexed: 32.7 ml/m2 LAV(MOD-sp2): 44.0 ml LAV(MOD-sp4): 49.4 ml Time Measurements MV dec time: 0.22 sec Doppler Measurements & Calculations MV E max mekhi: 99.2 cm/sec Lat Peak E' Mekhi: 7.3 cm/sec Med Peak E' Mekhi: 6.6 cm/sec MV A max mekhi: 135.9 cm/sec E/E' lat: 13.6 E/E' med: 14.9 MV E/A: 0.73 MV V2 max: 150.9 cm/sec MV P1/2t max mekhi: 110.2 cm/sec Ao V2 max: 158.4 cm/sec MV max P.1 mmHg MV P1/2t: 89.3 msec Ao max P.0 mmHg MV V2 mean: 80.9 cm/sec MV dec slope: 361.3 cm/sec2 MV mean P.1 mmHg MV V2 VTI: 36.8 cm MVA(P1/2t): 2.5 cm2 LV V1 max: 104.8 cm/sec PA V2 max: 114.5 cm/sec TR max mekhi: 247.6 cm/sec LV V1 max P.4 mmHg TR max P.5 mmHg ECHO/Echo Complete W/ Contrast Interpretation Summary Left ventricular systolic function is normal. The estimated ejection fraction is 65 %. The left atrium is mildly enlarged. There is mild mitral annular calcification. Mild diffuse mitral valve thickening. Mild focal mitral valve calcification, bileaflet. Mild (1+) mitral valve insufficiency. Mild tricuspid valve insufficiency. Mild focal aortic valve calcification. Trivial pulmonic valve insufficiency. Right ventricular systolic pressure estimated to be 28 mmHg. Diastolic function is indeterminate. Ordering Physician: Fela Rodriguez Referring Physician: Fela Rodriguez Performed By: Eddie Moore RCS
--- NOTE | 2021-09-21 11:04 | STRESSREP ---
Stress Test Report Date: 09-21-2021 Procedure: Pharmacologic stress nuclear imaging study Indications: Chest pain Consent: Per the patient Procedure: The patient underwent pharmacologic (Regadenoson 0.4mg ) evaluation with a peak heart rate of 93 beats per minute (64%predicted maximal heart rate) and a peak blood pressure of 174/80 mmHg. The baseline ECG demonstrated sinus rhythm. The peak pharmacologic ECG demonstrated no obvious ECG changes. There were no cardiac dysrhythmias pretest, during pharmacologic infusion, or recovery. There was no complaint of chest discomfort during pharmacologic infusion or recovery. The examination was discontinued secondary to completion of protocol. Impression: 1. Pharmacologic (Regadenoson) evaluation 2. Peak pharmacologic ECG with no obvious ECG changes. 3. There were no cardiac dysrhythmias pretest, during pharmacologic infusion, or recovery. 4. Nuclear images pending Myocardial perfusion imaging study: Technique: The patient was injected with 11.8 millicuries of technetium 99m Cardiolite and subsequently rest SPECT Cardiolite nuclear imaging was obtained in the horizontal long, vertical long, and short axis views. The patient underwent pharmacologic (Regadenoson) evaluation with a peak heart rate of 93 beats per minute (64% percent predicted maximal heart rate) and a peak blood pressure of 174/80 mmHg. The patient was injected with 32.9 millicuries of technetium 99m Cardiolite and subsequently stress SPECT Cardiolite nuclear imaging was obtained in the horizontal long, vertical long, and short axis views. A gated Cardiolite study at peak stress was obtained. Interpretation: Rest and stress SPECT Cardiolite nuclear imaging status post realignment, normalization, and attenuation correction demonstrate relative uniform tracer uptake and myocardial perfusion appearing within normal limits. There is end systolic thickening and brightening. The gated Cardiolite study demonstrates myocardial thickening and inward wall motion. The reported LVEF is 81%. Impression: 1. Rest and stress SPECT Cardiolite nuclear imaging demonstrate relative uniform tracer uptake and myocardial perfusion appearing within normal limits. 2. The gated Cardiolite study reports an LVEF of 81%. This note was generated with [employer] software. It may contain incorrect words, spelling, and punctuation that were not noted in checking the note before signing.
== END ==
PROVIDERS: PCP Internal Medicine; Referring Provider Internal Medicine; Visit Provider Internal Medicine
DX: R07.9 Chest pain, unspecified (principal)
CPT/HCPCS: 78452; 93017; 93306; A9500; Q9957; A4216; C8929; J2785

== ENCOUNTER 2021-10-28 12:03 | Outpatient (CLI) | payer MEDICARE, OTHER, SELFPAY ==
[2021-10-28 13:15] LABS: Anion Gap 7 (5-15); BUN 32 mg/dL (7-18); BUN/Creat Ratio 20.1 RATIO (10-20); Calcium,Total 10.3 mg/dL (8.5-10.1); Chloride 103 mmol/L (98-107); Creatinine, Serum 1.59 mg/dL (0.55-1.02); EST Glomerular Filtration Rate 34 mL/min (>60); Est Glom Filt Rate - Afr Amer 41 mL/min (>60); Glucose 108 mg/dL (74-106); Potassium 4.3 mmol/L (3.5-5.1); Sodium Level 136 mmol/L (136-145)
[2021-10-28 13:22] LABS: BNP,B-Type NATRIURETIC PEPTIDE 13.7 pg/mL (0-100)
== END 2021-10-28 23:59 | disposition short-term general hospital (02) ==
LOC: LAB 12:08
PROVIDERS: PCP Internal Medicine; Visit Provider Internal Medicine Cardiovascular Disease
DX: R06.00 Dyspnea, unspecified (principal); R07.9 Chest pain, unspecified
CPT/HCPCS: 36415; 80048; 83880

== ENCOUNTER 2021-11-16 13:14 | Outpatient (CLI) | payer MEDICARE, OTHER, SELFPAY ==
--- NOTE | 2021-11-16 13:16 | BI_ITS ---
MAMMOGRAPHY - BILATERAL SCREENING REASON FOR EXAM: Female, 76 years old. Routine annual screening examination. PERTINENT HISTORY: Mother with breast cancer. Aunt with breast cancer. TECHNIQUE: Digital bilateral breast demetri (3D mammographic acquisition) in the CC and MLO projections. 2-D mediolateral oblique (MLO) and craniocaudad (CC) views of both breasts were obtained. CAD: Full Field Digital Mammography with Computer Added Detection was performed. COMPARISON: Comparison is made with prior study dated 10/16/2020 and 03/13/2019. FINDINGS: Breast Composition: There are scattered areas of fibroglandular density. There are no dominant masses or suspicious calcifications. No other significant abnormalities are identified. There has been no significant change since the prior study. BI/SCRN MAMM (CAD)W/DEMETRI BILAT IMPRESSION: Stable bilateral screening mammogram. Yearly follow-up mammogram recommended. (A) ASSESSMENT CATEGORY: BIRADS Category 1: Negative. A letter regarding these results will be sent to the patient by the facility within 30 days. Approximately 10% of breast cancers are not detected by mammography. A normal mammogram should not delay biopsy of a clinically suspicious abnormality. [id number] Electronically Signed: Emiliano Galvez MD at 14:40 EST ,
--- NOTE | 2021-11-16 13:20 | BD_ITS ---
STUDY: DUAL ENERGY X-RAY ABSORPTIOMETRY / DXA REASON FOR EXAM: Female, 76 years old. Z780. The patient is postmenopausal. TECHNIQUE: Bone Mineral Density (BMD) measurements of lumbar spine and bilateral hips were obtained. COMPARISON: Comparison is made with prior study dated 03/13/2019. FINDINGS: Lumbar Spine (L1-L4): g/cm2 (1.084) / T-score (1.0) / Z-score (3.2) Findings are suggestive of normal bone density with a low fracture risk. Left Femur Total: g/cm2 (0.773) / T-score (-1.4) / Z-score (0.4) Left Femoral Neck: g/cm2 (0.614) / T-score (-2.1) / Z-score (0.0) Right Femur Total: g/cm2 (0.814) / T-score (-1.0) / Z-score (0.8) Right Femoral Neck: g/cm2 (0.662) / T-score (-1.7) / Z-score (0.4) The T-Scores on the most recent prior examination were: Lumbar Spine (L1-L4): There has been improvement of bone density since the previous examination. Left Femur Total: which represents a worsening of 3.3%. Right Femur Total: which represents an improvement of 0.8%. BD/Dexa Bone Density Study IMPRESSION: The patient is considered osteopenic as outlined below according to World Vivek Organization (WHO) criteria with a moderate fracture risk. There has been improvement of bone density since the previous examination. Reference Information: The T-score is the number of standard deviations above or below the standard which is normal for young adults at their peak bone mineral density. The World Health Organization (WHO) interprets the T-scores as follows: Above -1 Normal bone density Between -1 and -2.5 Osteopenia Equal to / or below -2.5 Osteoporosis As a practical clinical guideline, osteopenia may be graded as follows: Mild -1 through -1.5 Moderate -1.6 through -2.0 Severe -2.1 through -2.4 The Z-score is the number of standard deviations above or below age-matched controls. A Z-score of less than -1.5 would be considered abnormal. References: 1. NIH Osteoporosis and Related Bone Diseases www osteo.org 2. International Society for Clinical Densitometry www iscd.org 3. National Osteoporosis Foundation www nof.org Electronically Signed: Emiliano Galvez MD at 14:10 EST ,
== END 2021-11-16 23:59 | disposition home or self-care (01) ==
LOC: OPBD 13:14
PROVIDERS: PCP Internal Medicine; Referring Provider Internal Medicine; Visit Provider Internal Medicine
DX: Z12.31 Encounter for screening mammogram for malignant neoplasm of breast (principal); Z78.0 Asymptomatic menopausal state
CPT/HCPCS: 77063; 77067; 77080

== ENCOUNTER 2021-11-30 12:00 | Outpatient (CLI) | payer MEDICARE, OTHER, SELFPAY ==
--- NOTE | 2021-11-30 12:13 | US_ITS ---
STUDY: RENAL ULTRASOUND - COMPLETE REASON FOR EXAM: Female, 76 years old. JENNIFER MAO SERUM CREATINE TECHNIQUE: Ultrasound evaluation of the kidneys was performed with real-time and static campuzano-scale imaging. COMPARISON: None. FINDINGS: RIGHT KIDNEY: Normal location of the right kidney, which is normal in size. The right kidney measures 9.9 cm x 5.1 cm x 3.7 cm. There is a normal cortex of the right kidney. The renal cortex measures 1.1 cm. There is no right renal mass or cyst. There are no right renal calculi. There is no right hydronephrosis. DISTAL RIGHT URETER: There is non-visualization of the distal right ureter. There is no demonstrated right ureterovesical junction calculus. There is a visualized right ureteral jet. LEFT KIDNEY: Normal location of the left kidney, which is normal in size. The left kidney measures 9.2 cm x 4.3 cm x 4.6 cm. There is a normal cortex of the left kidney. The renal cortex measures 1.3 cm. There is no left renal mass or cyst. There are no left renal calculi. There is no left hydronephrosis. DISTAL LEFT URETER: There is non-visualization of the distal left ureter. There is no demonstrated left ureterovesical junction calculus. There is a visualized left ureteral jet. BLADDER: The distended urinary bladder has a volume of 194.3 ml. There is a normal wall thickness of the distended urinary bladder. There is no demonstrated mass within the urinary bladder. There are no demonstrated bladder calculi. US/Kidney and Bladder IMPRESSION: Normal ultrasound of the kidneys and urinary bladder. Electronically Signed: Emiliano Galvez MD at 13:15 EST ,
--- NOTE | 2021-11-30 12:41 | CT_ITS ---
STUDY: CARDIAC CALCIUM SCORING - CT CHEST REASON FOR EXAM: Female, 76 years old. CP OVER READ ONLY RADIATION DOSAGE (If Supplied By Facility): CTDIvol = ( ) mGy, DLP = ( ) mGycm TECHNIQUE: Axial non-enhanced images were acquired through the heart for the sole purpose of measuring coronary artery calcium. Individualized dose optimization techniques were used for this CT. COMPARISON: None. FINDINGS: Lungs are moderately emphysematous with bullous changes in the upper lobes. There is basal dependent atelectasis. There are no focal high risk opacities. Interstitial markings are mildly increased. Pulmonary arteries are moderately dilated. There are reactive mediastinal lymph nodes. Osseous structures are intact with age-appropriate spinal degeneration. IMPRESSION: 1. Moderate to severe emphysema and inflammatory/infectious low-grade bronchiolitis. 2. Moderate pulmonary arterial hypertension. Please go to: [email or web address].[email or web address] , for a description of the calculator. Electronically Signed: Ambreen Diallo MD at 12:09 EST , STUDY: CTA CORONARY REASON FOR EXAM: Female, 76 years old. CP OVER READ ONLY RADIATION DOSAGE (If Supplied By Facility): CTDIvol = ( ) mGy, DLP = ( ) mGycm TECHNIQUE: Tomographic images were obtained of the heart and chest with a 64 detector row scanner using slice thicknesses of less than 1 mm. ISOVUE 370 100ml was injected in the arm. Post-processing of the angiographic images was performed, with multiplanar reformation and 3D reconstruction. Individualized dose optimization techniques were used for this CT. COMPARISON: 10 August 2020 FINDINGS: Lungs are moderately emphysematous with bullous changes in the upper lobes. There is basal dependent atelectasis. There are no focal high risk opacities. Interstitial markings are mildly increased. Pulmonary arteries are moderately dilated. There are reactive mediastinal lymph nodes. Osseous structures are intact with age-appropriate spinal degeneration. CT/Limited Chest CT w/CCTA IMPRESSION: 1. Moderate to severe emphysema and inflammatory/infectious low-grade bronchiolitis. 2. Moderate pulmonary arterial hypertension. Electronically Signed: Ambreen Diallo MD at 12:10 EST ,
[2021-11-30 12:52] VITALS: BP 146/49; PULSE 68; RESP 16; TEMP 36.7; O2SAT 97; BMI 24.7
[2021-11-30 13:15] VITALS: BP 146/49; PULSE 74
[2021-11-30] MEDS: Nitroglycerin SL (ED/IMG/CATH) 0.4 MG TABLET SL (13:15)
[2021-11-30 13:25] VITALS: BP 116/50; PULSE 61; RESP 16; O2SAT 96
[2021-11-30 15:28] LABS: Anion Gap 7 (5-15); BUN 20 mg/dL (7-18); BUN/Creat Ratio 17.1 RATIO (10-20); Calcium,Total 9.7 mg/dL (8.5-10.1); Chloride 106 mmol/L (98-107); Creatinine, Serum 1.17 mg/dL (0.55-1.02); EST Glomerular Filtration Rate 48 mL/min (>60); Est Glom Filt Rate - Afr Amer 58 mL/min (>60); Estimated Creatinine Clearance 29.84 ml/min; Glucose 110 mg/dL (74-106); Potassium 3.9 mmol/L (3.5-5.1); Sodium Level 139 mmol/L (136-145)
[2021-11-30 18:07] LABS: CREATININE FINGERSTICK 0.9 mg/dL (0.55-1.02); EGFR FINGERSTICK > 60.0000 mL/min (>60)
--- NOTE | 2021-12-05 17:09 | CCTA.WCONT ---
CCTA w/Cont Coronary Arteries Date of Study:: 11/30/21 Chest pain 76-year-old who presents with chest discomfort. The patient underwent multidetector CT scan technology with sequential imaging of the heart with prospective triggering end-diastolic face and submillimeter slice reconstruction following administration of contrast material. Calcium score was also performed. LEFT MAIN CORONARY ARTERY: This arose from the left coronary cusp and bifurcates into left anterior descending artery and left circumflex artery. No coronary calcium was noted [] LEFT ANTERIOR DESCENDING CORONARY ARTERY: This appeared to be a decent size vessel with mild calcification noted in the midsegment prior to the bifurcation of a diagonal vessel. No significant atherosclerotic plaquing was noted. [] LEFT CIRCUMFLEX CORONARY ARTERY: This was a nondominant vessel with no significant atherosclerotic plaquing noted. No coronary calcium was noted [] RIGHT CORONARY ARTERY: This was a dominant vessel arising from the right coronary cusp and giving of an acute marginal and posterior descending artery. No significant atherosclerotic plaquing was noted. Calcium score was 0 [] THORACIC AORTA: Normal size [] PULMONARY ARTERY: Normal size [] LEFT ATRIUM/APPENDAGE: [] MITRAL VALVE: Structurally normal [] AORTIC VALVE: Trileaflet [] LEFT VENTRICLE: Normal size [] CORONARY CALCIUM SCORE: 0-10 Conclusion: Mild atherosclerotic plaquing noted in the left anterior descending artery with no significant obstructive coronary disease present. []
== END 2021-11-30 23:59 | disposition home or self-care (01) ==
PROVIDERS: Internal Medicine Cardiovascular Disease; PCP Internal Medicine; Referring Provider Nurse Practitioner; Visit Provider Nurse Practitioner
DX: R79.89 Other specified abnormal findings of blood chemistry (principal); R07.89 Other chest pain
CPT/HCPCS: 36415; 75571; 75574; 76380; 76770; 80048; Q9967

== ENCOUNTER → 2022-08-16 | Outpatient (CLI) | payer MEDICARE, OTHER, SELFPAY ==
--- NOTE | 2022-08-16 16:06 | RAD_ITS ---
STUDY: X-RAY CHEST REASON FOR EXAM: Female, 77 years old. HEMOPTYSIS X 3 OVER PAST 2 WEEKS TECHNIQUE: XR Chest 2 Views COMPARISON: 08/10/2020 FINDINGS: There is atherosclerotic calcification of the aortic arch with tortuosity. There are diffuse degenerative changes of the visualized thoracic spine. There is degenerative osteoarthritis of the bilateral shoulders. There is no demonstrated pleural abnormality. Normal size heart. Normal mediastinum and soledad. Normal visualized pulmonary arteries. There is no demonstrated abnormality of the visualized soft tissue structures of the upper abdomen. RAD/Chest PA and Lateral IMPRESSION: There are no acute findings. Electronically Signed: Rj Espinoaz MD at 16:43 EST ,
== END | disposition home or self-care (01) ==
PROVIDERS: PCP Internal Medicine; Referring Provider Internal Medicine Hematology & Oncology; Visit Provider Internal Medicine Hematology & Oncology
DX: R04.2 Hemoptysis (principal); J44.9 Chronic obstructive pulmonary disease, unspecified; D47.1 Chronic myeloproliferative disease; D64.9 Anemia, unspecified; D72.829 Elevated white blood cell count, unspecified; D75.839 Thrombocytosis, unspecified
CPT/HCPCS: 36415; 71046; 80053; 85025

== ENCOUNTER → 2023-12-20 | Outpatient (CLI) | payer MEDICARE, OTHER, SELFPAY ==
[2023-12-20 17:42] LABS: Absolute Lymphocyte Count 2.06 X10^3/uL (0.83-4.51); Absolute Neutrophil Count 10.3 X10^3/uL (2.0-7.7); Basophil# 0.08 X10^3/uL; Basophil% 0.6 % (0-1); Eosinophil# 0.25 X10^3/uL; Eosinophils% 1.8 % (0-5); Hematocrit 44.4 % (37-47); Hemoglobin 13.6 g/dL (12.0-15.0); Lymphocyte # 2.06 X10^3/ul (0.83-4.51); Lymphocyte % 14.7 % (19-41); Mean Corp Hgb Conc 30.6 g/dL (32-36); Mean Corpuscular Hgb 28.1 pg (27.0-32.0); Mean Corpuscular Volume 91.7 fL (81-99); Mean Platelet Vol. 9.8 fl (6.2-12.0); Monocyte# 1.08 X10^3/uL; Monocyte% 7.7 % (0-10); NRBC Flagged by Analyzer 0 % (0-5); Neutrophil # 10.32 X10^3/uL (2.7-7.7); Neutrophil % 73.9 % (47-70); Platelet Count 640 K/mm3 (150-450); RBC Distribution Width CV 15.7 % (11.6-14.6); RBC Distribution Width SD 52.5 fl (35.1-43.9); Red Blood Count 4.84 M/mm3 (4.2-5.4)
[2023-12-20 18:00] LABS: Erythrocyte Sedimentation Rate 50 mm/hr (0-30)
[2023-12-20 18:05] LABS: Vitamin B12 463 pg/mL (211-911)
[2023-12-20 18:15] LABS: Hemoglobin A1c 5.8 % (3.8-5.6)
[2023-12-20 18:23] LABS: ALB/GLOB Ratio 0.8 RATIO (0.9-2.4); AST(SGOT) 17 U/L (15-37); Alanine Aminotransfer ALT/SGPT 12 U/L (13-56); Albumin, Serum 3.8 g/dL (3.2-5.0); Alkaline Phosphatase 126 U/L (45-117); Anion Gap 7 (5-15); BUN 20 mg/dL (7-18); BUN/Creat Ratio 22.3 RATIO (10-20); CRP 6.73 mg/L (0.0-3.0); Calcium,Total 9.6 mg/dL (8.5-10.1); Chloride 107 mmol/L (98-107); Cholesterol 263 mg/dL (200); EST Glomerular Filtration Rate 65 mL/min (>60); Est Glom Filt Rate - Afr Amer 78 mL/min (>60); Globulin 4.5 g/dL (2.2-4.2); Glucose 107 mg/dL (74-106); High Density Lipoprotein 49 mg/dL; Potassium 4.2 mmol/L (3.5-5.1); Protein, Total 8.3 g/dL (6.4-8.2); Sodium Level 138 mmol/L (136-145); Thyroid Stim Hormone (TSH) 1.64 uIU/mL (0.358-3.74); Triglycerides 335 mg/dL; Very Low Density Lipoprotein 67 mg/dL (5-40)
== END | disposition home or self-care (01) ==
LOC: MTLAB 16:50
PROVIDERS: PCP Internal Medicine; Referring Provider Internal Medicine; Visit Provider Internal Medicine
DX: E11.9 Type 2 diabetes mellitus without complications (principal); D47.1 Chronic myeloproliferative disease; E55.9 Vitamin D deficiency, unspecified; R53.83 Other fatigue
CPT/HCPCS: 36415; 80053; 80061; 82306; 82607; 83036; 84443; 85025; 85652; 86140

== ENCOUNTER → 2024-02-27 | Outpatient (CLI) | payer MEDICARE, OTHER, SELFPAY ==
--- NOTE | 2024-02-27 15:29 | BI_ITS ---
MAMMOGRAPHY - BILATERAL SCREENING 3-D TOMOSYNTHESIS REASON FOR EXAM: Female, 79 years old. SCREENING PERTINENT HISTORY: No significant family history. TECHNIQUE: 2-D mammograms and 3-D Tomosynthesis of the breast (s) were performed. CAD was performed. COMPARISON: 11/16/2021 FINDINGS: The breast composition is composed of scattered fibroglandular density. Scattered benign calcifications are seen. No dense spiculated masses or suspicious microcalcifications are identified. No architectural distortion is identified. There is no skin thickening or retraction. There has been no significant change since the prior study. BI/SCRN MAMM (CAD)W/DEMETRI BILAT IMPRESSION: No mammographic signs of malignancy. Routine yearly mammograms recommended. ASSESSMENT CATEGORY: BIRADS Category 1: Negative. A letter regarding these results will be sent to the patient by the facility within 30 days. FOLLOW UP RECOMMENDATION: Yearly follow up mammogram recommended. (A) Approximately 10% of breast cancers are not detected by mammography. A normal mammogram should not delay biopsy of a clinically suspicious abnormality. Electronically Signed: Gilberto Metcalf MD at 9:44 EDT ,
--- NOTE | 2024-02-27 15:34 | BD_ITS ---
STUDY: DUAL ENERGY X-RAY ABSORPTIOMETRY / DXA REASON FOR EXAM: Female, 79 years old. Z780 TECHNIQUE: Bone Mineral Density (BMD) measurements of lumbar spine and bilateral hips were obtained. COMPARISON: Comparison is made with prior study November 2021. FINDINGS: Lumbar Spine (L1-L4): g/cm2 (1.058) / T-score (0.7) / Z-score (3.1) Findings are suggestive of normal bone density with a low fracture risk. Left Femur Total: g/cm2 (0.718) / T-score (-1.8) / Z-score (0.1) Left Femoral Neck: g/cm2 (0.623) / T-score (-2.0) / Z-score (0.2) Right Femur Total: g/cm2 (0.740) / T-score (-1.7) / Z-score (0.3) Right Femoral Neck: g/cm2 (0.632) / T-score (-2.0) / Z-score (0.3) The T-Scores on the most recent prior examination were: Lumbar Spine (L1-L4): There has been worsening of bone density since the previous examination. Left Femur Total: which represents a worsening of 7.2%. Right Femur Total: which represents a worsening of 9.2%. BD/Dexa Bone Density Study IMPRESSION: The patient is considered osteopenic as outlined below according to World Vivek Organization (WHO) criteria with a moderate fracture risk. There has been worsening of bone density since the previous examination. Reference Information: The T-score is the number of standard deviations above or below the standard which is normal for young adults at their peak bone mineral density. The World Health Organization (WHO) interprets the T-scores as follows: Above -1 Normal bone density Between -1 and -2.5 Osteopenia Equal to / or below -2.5 Osteoporosis As a practical clinical guideline, osteopenia may be graded as follows: Mild -1 through -1.5 Moderate -1.6 through -2.0 Severe -2.1 through -2.4 The Z-score is the number of standard deviations above or below age-matched controls. A Z-score of less than -1.5 would be considered abnormal. References: 1. NIH Osteoporosis and Related Bone Diseases www osteo.org 2. International Society for Clinical Densitometry www iscd.org 3. National Osteoporosis Foundation www nof.org Electronically Signed: Emiliano Galvez MD at 9:42 EDT ,
== END | disposition home or self-care (01) ==
LOC: OPBD 15:27
PROVIDERS: PCP Internal Medicine; Referring Provider Internal Medicine; Visit Provider Internal Medicine
DX: Z12.31 Encounter for screening mammogram for malignant neoplasm of breast (principal); Z78.0 Asymptomatic menopausal state
CPT/HCPCS: 77063; 77067; 77080

== ENCOUNTER → 2025-02-18 | Outpatient (CLI) | payer MEDICARE, OTHER, SELFPAY ==
[2025-02-18 17:45] LABS: Absolute Lymphocyte Count 1.85 X10^3/uL (0.83-4.51); Absolute Neutrophil Count 10.9 X10^3/uL (2.0-7.7); Basophil# 0.08 X10^3/uL; Basophil% 0.6 % (0-1); Eosinophil# 0.22 X10^3/uL; Eosinophils% 1.5 % (0-5); Hematocrit 42.8 % (37-47); Hemoglobin 13.4 g/dL (12.0-15.0); Lymphocyte # 1.85 X10^3/ul (0.83-4.51); Mean Corp Hgb Conc 31.3 g/dL (32-36); Mean Corpuscular Hgb 26.7 pg (27.0-32.0); Mean Corpuscular Volume 85.3 fL (81-99); Mean Platelet Vol. 9.6 fl (6.2-12.0); Monocyte# 1.03 X10^3/uL; Monocyte% 7.2 % (0-10); NRBC Flagged by Analyzer 0 % (0-5); Neutrophil % 76.6 % (47-70); Platelet Count 595 K/mm3 (150-450); RBC Distribution Width CV 15.9 % (11.6-14.6); RBC Distribution Width SD 49.6 fl (35.1-43.9); Red Blood Count 5.02 M/mm3 (4.2-5.4); White Blood Count 14.2 K/mm3 (4.4-11.0)
--- NOTE | 2025-02-18 17:50 | RAD_ITS ---
EXAM: XR Left Ankle, 2 Views CLINICAL INDICATION: PAIN TECHNIQUE: Frontal and lateral views of the left ankle. COMPARISON: No relevant prior studies available. FINDINGS: BONES/JOINTS: Mild degenerative changes of the ankle joints extending to the lateral malleolus. Subtle fracture can not be excluded. No dislocation. SOFT TISSUES: Unremarkable. RAD/Ankle 2 Views IMPRESSION: Mild degenerative changes of the ankle joints extending to the lateral malleolu s. Subtle fracture can not be excluded. Reading Location: [id number]
--- NOTE | 2025-02-18 17:50 | RAD_ITS ---
EXAM: XR Left Foot, 2 Views CLINICAL INDICATION: PAIN TECHNIQUE: Frontal and lateral views of the left foot. COMPARISON: No relevant prior studies available. FINDINGS: BONES/JOINTS: Mild degenerative changes of the intertarsal joints. No acute fracture. No dislocation. SOFT TISSUES: Soft tissue swelling. No radiopaque foreign body. RAD/Foot 2 Views IMPRESSION: 1. Soft tissue swelling. 2. Degenerative changes as above. Reading Location: [id number]
--- NOTE | 2025-02-18 17:50 | RAD_ITS ---
EXAM: XR Right Foot, 2 Views CLINICAL INDICATION: PAIN TECHNIQUE: Frontal and lateral views of the right foot. COMPARISON: No relevant prior studies available. FINDINGS: BONES/JOINTS: Mild degenerative changes of the intertarsal joints. No acute fracture. No dislocation. SOFT TISSUES: Soft tissue swelling. No radiopaque foreign body. RAD/Foot 2 Views IMPRESSION: 1. Soft tissue swelling. 2. Degenerative changes as above. Reading Location: [id number]
--- NOTE | 2025-02-18 17:50 | RAD_ITS ---
EXAM: XR Right Ankle, 2 Views CLINICAL INDICATION: 'PAIN TECHNIQUE: Frontal and lateral views of the right ankle. COMPARISON: No relevant prior studies available. FINDINGS: BONES/JOINTS: Mild degenerative changes of the ankle joint. No acute fracture. No dislocation. SOFT TISSUES: Soft tissue swelling. RAD/Ankle 2 Views IMPRESSION: Soft tissue swelling. Reading Location: [id number]
[2025-02-18 18:12] LABS: ALB/GLOB Ratio 1.2 RATIO (0.9-2.4); AST(SGOT) 20 U/L (<=31); Alanine Aminotransfer ALT/SGPT 11 U/L (<=34); Albumin, Serum 4.3 g/dL (3.4-4.8); Alkaline Phosphatase 143 U/L (35-104); Anion Gap 12 (5-15); BUN 20 mg/dL (4-19); BUN/Creat Ratio 18.3 RATIO (10-20); Calcium,Total 10.1 mg/dL (7.6-11.0); Carbon Dioxide 23.4 mmol/L (21.0-32.0); Chloride 107 mmol/L (98-108); Creatinine, Serum 1.09 mg/dL (0.70-1.20); EST Glomerular Filtration Rate 52 (>60); Ferritin 66 ng/mL (22-378); Globulin 3.5 g/dL (2.2-4.2); Glucose 113 mg/dL (70-99); Potassium 4.1 mmol/L (3.3-5.1); Protein, Total 7.8 g/dL (5.9-8.4); Sodium Level 142 mmol/L (133-145); Total Bilirubin 0.17 mg/dL (0.00-1.30); Vitamin B12 536 pg/mL (180-914)
[2025-02-18 18:34] LABS: CRP 8.59 mg/L (0.0-3.0); Iron 62 ug/dL (50-170); Iron Binding Capacity,Total 308 ug/dL (250-450); Iron Binding Capacity,Unsat 246 ug/dL (228-428); LDH 305 U/L (84-246)
[2025-02-18 18:44] LABS: Erythrocyte Sedimentation Rate 15 mm/hr (0-30)
[2025-02-20 15:08] LABS: Erythropoietin 3.5 mIU/mL (2.6-18.5)
== END | disposition home or self-care (01) ==
LOC: RAD 16:54
PROVIDERS: PCP Internal Medicine; Referring Provider Internal Medicine Medical Oncology; Visit Provider Internal Medicine Medical Oncology
DX: M79.671 Pain in right foot (principal); D47.1 Chronic myeloproliferative disease; M79.672 Pain in left foot
CPT/HCPCS: 36415; 73600; 73620; 80053; 82607; 82668; 82728; 83540; 83550; 83615; 85025; 85652; 86140

== ENCOUNTER → 2025-03-05 | Outpatient (CLI) | payer MEDICARE, OTHER, SELFPAY ==
--- NOTE | 2025-03-05 14:26 | BI_ITS ---
EXAM: SCRN MAMM (CAD)W/DEMETRI BILAT 03/05/2025 CLINICAL HISTORY: F, Age 80 y/o , SCREENING TECHNIQUE: Bilateral screening digital breast tomosynthesis with 2D and 3D images. Computer aided detection. COMPARISON: Prior exam(s) dated 02/27/2024, 11/16/2021. FINDINGS: TISSUE DENSITY: The breast tissue is composed of scattered area of fibroglandular density. Bilateral Breast Mammographic Findings: No significant masses, calcifications or other abnormalities are identified. BI/SCRN MAMM (CAD)W/DEMETRI BILAT IMPRESSION: Right Breast: BIRADS 1 NEGATIVE. Left Breast: BIRADS 1 NEGATIVE. OVERALL FINAL ASSESSMENT: BIRADS 1 NEGATIVE. RECOMMENDATION: Routine annual follow-up in 1 Year A letter with findings and recommendations will be mailed to the patient. Reading Location: [id number]
[2025-03-05 22:27] LABS: Xtra Tube EP Lab EXTRA TUBE
== END | disposition home or self-care (01) ==
PROVIDERS: Internal Medicine Medical Oncology; PCP Internal Medicine; Referring Provider Internal Medicine; Visit Provider Internal Medicine
DX: Z12.31 Encounter for screening mammogram for malignant neoplasm of breast (principal)
CPT/HCPCS: 36415; 77063; 77067

== ENCOUNTER → 2025-03-31 | Outpatient (CLI) | payer MEDICARE, OTHER, SELFPAY ==
[2025-03-31 16:50] LABS: Bacteria 0 SEEN /hpf (None Seen); Red Blood Cells-Urine 0 SEEN /hpf (0-5)
[2025-03-31 17:27] LABS: Absolute Lymphocyte Count 1.55 X10^3/uL (0.83-4.51); Absolute Neutrophil Count 10.8 X10^3/uL (2.0-7.7); Basophil# 0.06 X10^3/uL; Basophil% 0.4 % (0-1); Eosinophils% 1.4 % (0-5); Hematocrit 42.6 % (37-47); Hemoglobin 13.4 g/dL (12.0-15.0); Lymphocyte # 1.55 X10^3/ul (0.83-4.51); Lymphocyte % 11.2 % (19-41); Mean Corp Hgb Conc 31.5 g/dL (32-36); Mean Corpuscular Hgb 26.8 pg (27.0-32.0); Mean Corpuscular Volume 85.2 fL (81-99); Mean Platelet Vol. 9.3 fl (6.2-12.0); Monocyte# 1.14 X10^3/uL; Monocyte% 8.2 % (0-10); NRBC Flagged by Analyzer 0 % (0-5); Neutrophil # 10.76 X10^3/uL (2.7-7.7); Platelet Count 582 K/mm3 (150-450); RBC Distribution Width CV 15.6 % (11.6-14.6); RBC Distribution Width SD 48.2 fl (35.1-43.9); White Blood Count 13.8 K/mm3 (4.4-11.0)
[2025-03-31 17:39] LABS: Color, Urine Yellow (Yellow); Glucose, Dipstick Normal (Normal); Ketone-Dipstick Negative (Negative); Leukocyte Esterase-Dipstick Negative /ul (Negative); Nitrite-Dipstick Negative (Negative); Occult Blood-Urine Negative /ul (Negative); Protein-Dipstick 30 mg/dl (Negative); Specific Gravity, Urine 1.025 (1.002-1.030); Urine Clarity Clear (Clear); Urine Urobilinogen Normal (Normal)
[2025-03-31 17:46] LABS: Microalbumin,Random Urine 50.2 mg/L (NO RANGE EST.); Microalbumin:Creatinine Ratio 17.3 mg/g CRE
[2025-03-31 18:08] LABS: Urine Bilirubin Dipstick 1 mg/dL (Negative)
[2025-03-31 18:19] LABS: Mucous, Urine 1+ /hpf (<or=2+); Squamous Epithelial Cells - UA 0-5 SEEN /hpf (5-10); White Blood Cells 0-5 SEEN /hpf (0-5)
[2025-03-31 18:20] LABS: Fine Granular Cast- Urine 0-5 SEEN /lpf (0-5); Hyaline Cast 10-25 SEEN /lpf (0-5)
[2025-03-31 18:45] LABS: ALB/GLOB Ratio 1.2 RATIO (0.9-2.4); AST(SGOT) 16 U/L (<=31); Alanine Aminotransfer ALT/SGPT 8 U/L (<=34); Albumin, Serum 4.2 g/dL (3.4-4.8); Alkaline Phosphatase 140 U/L (35-104); Anion Gap 13 (5-15); BUN 17 mg/dL (4-19); Calcium,Total 9.5 mg/dL (7.6-11.0); Carbon Dioxide 22.5 mmol/L (21.0-32.0); Chloride 104 mmol/L (98-108); Cholesterol 275 mg/dL (<=200); Creatinine, Serum 1.16 mg/dL (0.70-1.20); EST Glomerular Filtration Rate 48 (>60); Globulin 3.6 g/dL (2.2-4.2); Glucose 100 mg/dL (70-99); High Density Lipoprotein 51 mg/dL; Low Density Lipoprotein Calc. 164 mg/dL; Potassium 4.3 mmol/L (3.3-5.1); Protein, Total 7.8 g/dL (5.9-8.4); Sodium Level 140 mmol/L (133-145); Total Bilirubin 0.28 mg/dL (0.00-1.30); Triglycerides 302 mg/dL; Very Low Density Lipoprotein 60 mg/dL (5-40); Vitamin D,25 Hydroxy 43.7 ng/mL (30-100); cholesterol:hdl ratio screen 5.45
== END | disposition home or self-care (01) ==
LOC: LAB 16:40
PROVIDERS: PCP Internal Medicine; Referring Provider Internal Medicine; Visit Provider Internal Medicine
DX: E11.9 Type 2 diabetes mellitus without complications (principal); E78.2 Mixed hyperlipidemia; E55.9 Vitamin D deficiency, unspecified
CPT/HCPCS: 36415; 80053; 80061; 81001; 82043; 82306; 82570; 84443; 85025

== ENCOUNTER → 2025-04-21 | Outpatient (CLI) | payer MEDICARE, OTHER, SELFPAY ==
--- NOTE | 2025-04-21 12:44 | CDU_ITS ---
Reason For Study Reason For Study: Bilateral Carotid Stenosis Rt. Velocities/BP Lt. Velocities/BP Prox CCA 109.4/16.3 cm/sec. Prox CCA 92.0/10.9 cm/sec. Mid CCA 82.0/16.3 cm/sec. Mid CCA 76.8/12.0 cm/sec. Dist CCA 63.7/16.3 cm/sec. Dist CCA 72.4/16.4 cm/sec. Prox ICA 58.8/15.8 cm/sec. Prox ICA 58.3/21.7 cm/sec. Mid ICA 87.4/22.1 cm/sec. Mid ICA 82.0/21.7 cm/sec. Dist ICA 104.9/30.1 cm/sec. Dist ICA 94.8/29.0 cm/sec. Rt. ICA/CCA = 1.3. Lt. ICA/CCA = 1.2. Prox ECA 64.8/10.0 cm/sec. Prox ECA 122.2/7.1 cm/sec. Rt. Vert. 52.8/8.9 cm/sec. Lt. Vert. 54.6/3.5 cm/sec. Right Extracranial There is homogeneous, smooth atherosclerotic plaque noted in the right common carotid artery. There is heterogeneous, irregular atherosclerotic plaque noted in the right internal carotid artery. The right internal carotid artery is very tortuous. There is heterogeneous, irregular atherosclerotic plaque noted in the right external carotid artery. Antegrade flow is noted in the right vertebral artery. Left Extracranial There is homogeneous, smooth atherosclerotic plaque noted in the left common carotid artery. There is intimal thickening but no significant atherosclerotic plaque noted in the left internal carotid artery. The left internal carotid artery is very tortuous. There is homogeneous, smooth atherosclerotic plaque noted in the left external carotid artery. Antegrade flow is noted in the left vertebral artery. Procedure Carotid Duplex [id number]. This is a Carotid Duplex examination using B-mode, color flow and specral Doppler. The exam was diagnostic. Exam performed in department. VL/Carotid Duplex Ultrasound Interpretation Summary Mild (<50%) stenosis right extracranial internal carotid. Normal left extracranial internal carotid. Patent and antegrade vertebrals bilaterally. Ordering Physician: Fela Rodriguez Referring Physician: Fela Rodriguez Performed By: Jose Bryant RVT
== END | disposition home or self-care (01) ==
LOC: CVS 12:44
PROVIDERS: PCP Internal Medicine; Referring Provider Internal Medicine; Visit Provider Internal Medicine
DX: I65.23 Occlusion and stenosis of bilateral carotid arteries (principal)
CPT/HCPCS: 93880

== ENCOUNTER → 2025-04-22 | Outpatient (CLI) | payer MEDICARE, OTHER, SELFPAY ==
--- NOTE | 2025-04-22 12:14 | MRI_ITS ---
PROCEDURE: BRAIN W/WO CONTRAST 04/22/2025 REASON FOR EXAM: UNSTEADY GAIT, dizziness, chronic myeloproliferative disease TECHNIQUE: Multiplanar and multisequential MRI of the brain was performed without and with IV gadolinium based contrast administration. CONTRAST: Clariscan VOLUME: 11 mL COMPARISON: CT head 09/01/2021. No prior brain MRI available. FINDINGS: No acute intracranial abnormality. No regions of abnormal restricted diffusion to indicate recent infarct. No mass lesion or pathologic enhancement, evidence of hemorrhage, extra-axial collection, or hydrocephalus. Mild age-appropriate generalized brain parenchymal volume loss. Minimal scattered foci of leukoaraiosis in the supratentorial white matter. Preserved major intracranial vascular flow voids. Absent [place] ocular lenses. Mild peripheral mucosal thickening in the left maxillary sinus and left ethmoid air cells. Nonspecific scattered fluid signal in the left mastoid air cells. MRI/Brain W/WO Contrast IMPRESSION: No acute intracranial abnormality. Reading Location: [id number]
--- NOTE | 2025-04-22 12:14 | MRI_ITS ---
PROCEDURE: BRAIN W/WO CONTRAST 04/22/2025 REASON FOR EXAM: UNSTEADY GAIT, dizziness, chronic myeloproliferative disease TECHNIQUE: Multiplanar and multisequential MRI of the brain was performed without and with IV gadolinium based contrast administration. CONTRAST: Clariscan VOLUME: 11 mL COMPARISON: CT head 09/01/2021. No prior brain MRI available. FINDINGS: No acute intracranial abnormality. No regions of abnormal restricted diffusion to indicate recent infarct. No mass lesion or pathologic enhancement, evidence of hemorrhage, extra-axial collection, or hydrocephalus. Mild age-appropriate generalized brain parenchymal volume loss. Minimal scattered foci of leukoaraiosis in the supratentorial white matter. Preserved major intracranial vascular flow voids. Absent [place] ocular lenses. Mild peripheral mucosal thickening in the left maxillary sinus and left ethmoid air cells. Nonspecific scattered fluid signal in the left mastoid air cells. MRI/Brain W/WO Contrast IMPRESSION: No acute intracranial abnormality. Reading Location: [id number]
== END | disposition home or self-care (01) ==
LOC: OPMRI 12:12
PROVIDERS: PCP Internal Medicine; Referring Provider Internal Medicine Medical Oncology; Visit Provider Internal Medicine Medical Oncology
DX: R26.81 Unsteadiness on feet (principal); D47.1 Chronic myeloproliferative disease
CPT/HCPCS: 70553; A9575